=== PATIENT | male | born 2000 | race Caucasian/White ===

== ENCOUNTER 2021-05-24 10:47 | Emergency (ER) | payer OTHER, SELFPAY ==
--- NOTE | 2021-05-24 10:51 | ED.URI ---
HPI - URI/Sore Throat General Chief Complaint: Upper Respiratory Infection Stated Complaint: stuffy nose/sore throat Time Seen by Provider: 05/24/21 10:52 Source: patient and RN notes reviewed History of Present Illness HPI Narrative: Patient is a 21-year-old male who presents the urgent care with complaints of nasal congestion and sore throat. Patient states his symptoms have been less than 24 hours. Patient denies of any known exposure to strep or Covid. States that he believes he has a sinus infection . Patient has not had any history of chronic sinusitis or sinus surgeries in the past. Patient has done nothing for his symptoms with [id number] medications. Denies of any fever, chills, nausea, vomiting. No other acute complaints. No acute distress noted. Patient aware of the plan of care. Some parts of this dictation were generated by voice recognition software and may contain typographical and/or grammatical inaccuracies. Related Data Home Medications Medication Instructions Recorded Confirmed No Home Medications 10/27/20 10/27/20 Allergies Allergy/AdvReac Type Severity Reaction Status Date / Time No Known Allergies Allergy Unverified 10/27/20 15:16 Review of Systems Review of Systems: CONSTITUTIONAL: Denies fever, chills, or sweats. EYES: Denies visual changes, redness, or discharge. ENT: Denies rhinorrhea, otalgia. Reports of sore throat and nasal congestion CARDIOVASCULAR: Denies chest pain, palpitations, or edema. RESPIRATORY: Denies cough or dyspnea. GASTROINTESTINAL: Denies abdominal pain, nausea, vomiting, or diarrhea. GENITOURINARY: Denies dysuria or hematuria. SKIN: Denies rash or itching. MUSCULOSKELETAL: Denies back pain, joint pain, or myalgia. NEUROLOGIC: Denies headache, numbness, or weakness. All other systems reviewed are negative, except as documented in HPI. [facility] Family History Family History (Updated 03/27/14 @ 07:13 by DOCTOR UNKNOWN) Father Hypertension Social History Social History (Updated 10/27/20 @ 15:16 by Marsha Hahn) Smoking status: Never smoker Second hand tobacco smoke exposure: Yes Alcohol intake: never Substance use: never Substance use type: does not use Gender identity (if verbalized by the patient): Male Comments At the time of my signature, I reviewed and agree with the nursing past medical, surgical, social, and family history. There is no relevant family history pertinent to the patient complaint. Exam Narrative: GENERAL: This is a well-nourished, well-developed patient, in no apparent distress. HEAD: normocephalic, atraumatic. EYES: PERRL. Sclera clear/white. Vision is grossly intact. EARS: External ears normal, auditory canals clear and without drainage, TMs normal without perforation. Hearing grossly intact. NOSE: External nose normal with no obvious nasal discharge, nares without redness, no rhinorrhea. THROAT: Mucous membranes moist, mild erythema in the posterior oropharynx without exudate or ulceration. Moderate postnasal drainage. NECK: Neck supple, non-tender without lymphadenopathy, masses or thyromegaly. CARDIOVASCULAR: Regular rate and rhythm without murmurs, gallops, or rubs. RESPIRATORY: Clear to auscultation. Breath sounds equal bilaterally. No wheezes, rales, or rhonchi. SKIN: warm, intact with no suspicious lesions or rash, good texture and turgor. NEURO: awake, alert, and oriented to person, place and time. There were no obvious focal neurologic abnormalities. EXTREMITIES: No clubbing, cyanosis, or edema. Course Vital Signs Vital signs: Vital Signs Temperature 98.1 F 05/24/21 11:02 Pulse Rate 94 05/24/21 11:02 Respiratory Rate 16 05/24/21 11:02 Blood Pressure 143/89 H 05/24/21 11:02 Pulse Oximetry 100 05/24/21 11:02 Temperature 98.1 F 05/24/21 11:02 Pulse Rate 94 05/24/21 11:02 Respiratory Rate 16 05/24/21 11:02 Blood Pressure 143/89 H 05/24/21 11:02 Pulse Oximetry 100 05/24/21 11
[2021-05-24 11:02] VITALS: BP 143/89; PULSE 94; RESP 16; TEMP 36.7; O2SAT 100
== END 2021-05-24 11:16 | disposition home or self-care (01) ==
PROVIDERS: Emergency Provider Nurse Practitioner Family; PCP Family Medicine
DX: J02.9 Acute pharyngitis, unspecified (principal)
CPT/HCPCS: 87081; 87880; 99213; G0463